=== PATIENT | female | born 1940 | race Caucasian/White ===

== ENCOUNTER 2024-09-07 12:12 | Observation (INO) | payer MEDICARE, OTHER ==
[~2024-09-07] VITALS: Ht 157.5 cm; Wt 56.9 kg
[2024-09-07] MEDS ORDERED: LISINOPRIL10 MG PO (12:24)
[2024-09-07] MEDS ORDERED: ondansetron HCL 4 MG/2 ML VIAL IV ONE (12:45)
[2024-09-07] MEDS ORDERED: SODIUM CHLORIDE 0.9% 1,000 ML IV ONE (12:45)
[2024-09-07 12:47] LABS: BASOPHILS 0.2 % (0-2); EOSINOPHILS 2.9 % (0-6); HEMATOCRIT 36.2 % (35.0-50.0); HEMOGLOBIN 12.2 g/dL (12.0-18.0); LYMPHOCYTES 14.3 % (24-44); MCH 29.2 (27-36); MCHC 33.7 g/dl (30-36); MCV 86.8 fl (81-99); NEUTROPHILS 72.6 % (39-80); PLATELET COUNT 218 K/uL (140-440); RBC 4.18 M/ul (4.3-5.7); RDW 13.9 (10.5-15.0)
[2024-09-07 13:03] LABS: ALBUMIN 3.4 g/dL (3.4-5.0); ALBUMIN/GLOBULIN RATIO 0.97 (1.1-2.4); ANION GAP 11.7 (7-21); BILIRUBIN, TOTAL 0.5 mg/dL (0.2-1.0); BUN/CREATININE RATIO 12.04 (6.0-28.6); CALCIUM 9.5 mg/dL (8.5-10.1); CREATININE, SERUM 1.66 mg/dL (0.55-1.02); POTASSIUM 3.7 mmol/L (3.5-5.1); PROTEIN, TOTAL 6.9 g/dL (6.4-8.2)
[2024-09-07 13:54] LABS: BILIRUBIN, URINE POSITIVE (negative); BLOOD/HGB, URINE NEGATIVE (Negative); KETONE, URINE TRACE (Negative); LEUK ESTERASE, URINE NEGATIVE (negative); NITRITE, URINE NEGATIVE (negative); PH, URINE 5.5 (5-7)
[2024-09-07 14:00] LABS: EPITHELIAL CELLS, URINE SQUAMOUS 4+ /lpf (0-1+); RED BLOOD CELLS, URINE 0-1 /hpf (0-5)
[2024-09-07 14:01] LABS: BACTERIA, URINE RARE /hpf (negative); CASTS, URINE NONE SEEN \\lpf; COLLECTION TYPE, URINE CLEAN CATCH; CRYSTALS, URINE NONE SEEN (0-1+); REFLEX CULTURE, URINE No (No)
[2024-09-07] MEDS ORDERED: LACTATED RINGER'S 1,000 ML IV SCH ×2 (16:30→18:00)
[2024-09-07] MEDS ORDERED: LATANOPROST2.5 ML OU (17:12)
[2024-09-07] MEDS ORDERED: NITROFURANTOIN100 M1 PO (17:12)
[2024-09-07] MEDS ORDERED: KETOROLAC TROMETHAMINE 15 MG/ML VIAL IV PRN (18:00)
[2024-09-07] MEDS ORDERED: MORPHINE SULFATE 10 MG/ML VIAL IV PRN (18:00)
[2024-09-07] MEDS ORDERED: ondansetron HCL 4 MG/2 ML VIAL IV PRN (18:00)
[2024-09-07 18:44] VITALS: BP 147/59
--- NOTE | 2024-09-07 18:47 | NUR ---
PATIENT ARRIVED TO MED/SURG AT 1840. PATIENT DENIES PAIN. LR@85 TO LEFT ARM. VITALS ARE STABLE, PATIENT IS 97% ON ROOM AIR. PATIENT IS A/O X4 CALL LIGHT IN HAND.
--- NOTE | 2024-09-07 19:02 | NUR ---
RECEIVED REPORT. PT UNDERGOING ADMISSION CHECKLIST WITH CLOTHES SEPARATOR. GIVEN LEMON MCGRATH SODA, CALL LIGHT IN REACH
--- NOTE | 2024-09-07 20:07 | NUR ---
RECEIVED REPORT. PT EATING DINNER IN CHAIR, BLOOD IS ADMINISTERING CURRENTLY. CALL LIGHT IN REACH
[2024-09-07 20:33] VITALS: BP 151/54
[2024-09-07] MEDS ORDERED: FAMOTIDINE 20 MG/ 2 ML VIAL IV SCH (21:00)
--- NOTE | 2024-09-07 21:00 | NUR ---
ASSESSMENT, EVENING MEDS. PT ALERT RESTING IN BED. NO NEEDS AT THIS TIME. CALL LIGHT IN REACH
[2024-09-07] MEDS ORDERED: CEFAZOLIN SODIUM 1 GM/10 ML SYR IV SCH (22:00)
--- NOTE | 2024-09-07 23:46 | NUR ---
PT RESTING IN BED, EASILY ROUSED WHEN ENTERED ROOM. NO NEEDS AT THIS TIME, CALL LIGHT IN REACH
[2024-09-08] VITALS (12 sets, daily range): BP systolic 151–170; BP diastolic 54–70
--- NOTE | 2024-09-08 02:06 | NUR ---
VITALS. ASSISTED SBA TO BATHROOM SURGERY CONSENT SIGNED. REINFORCED EDUCATION ON UPCOMING GALLBLADDER SURGERY, PT VERBALIZES UNDERSTANDING. CALL LIGHT IN REACH
--- NOTE | 2024-09-08 03:44 | NUR ---
PT RESTING WITH EYES CLOSED, RISE AND FALL OF CHEST. CALL LIGHT IN REACH
[2024-09-08 05:26] LABS: BASOPHILS 0.3 % (0-2); EOSINOPHILS 4.5 % (0-6); HEMATOCRIT 31.8 % (35.0-50.0); HEMOGLOBIN 10.9 g/dL (12.0-18.0); LYMPHOCYTES 17.9 % (24-44); MCH 29.4 (27-36); MCHC 34.2 g/dl (30-36); MCV 85.9 fl (81-99); NEUTROPHILS 68.3 % (39-80); PLATELET COUNT 185 K/uL (140-440); RDW 13.8 (10.5-15.0)
[2024-09-08 05:47] LABS: ALBUMIN 2.8 g/dL (3.4-5.0); ALBUMIN/GLOBULIN RATIO 0.88 (1.1-2.4); ANION GAP 11.9 (7-21); BILIRUBIN, TOTAL 0.5 mg/dL (0.2-1.0); BUN/CREATININE RATIO 13.33 (6.0-28.6); CALCIUM 9.3 mg/dL (8.5-10.1); CREATININE, SERUM 1.05 mg/dL (0.55-1.02); POTASSIUM 3.9 mmol/L (3.5-5.1)
--- NOTE | 2024-09-08 05:55 | NUR ---
PLACED CALL TO MD AND ASKED IF HE WOULD LIKE A PRE-OP EKG. RECEIVED VERBAL ORDER TO COMPLETE PRE-OP EKG. RT IN ROOM TO COMPLETE EKG.
--- NOTE | 2024-09-08 06:10 | NUR ---
MORNING ASSESSMENT, GIVEN IV ABX AND CHANGED LINENS. PT AWAITING GALLBLADDER SURGERY TODAY, REINFORCED PRE-OP EDUCATION. CALL LIGHT IN REACH
[2024-09-08] MEDS ORDERED: LISINOPRIL20 MG PO (07:57)
[2024-09-08] MEDS ORDERED: HALOBETASOL PRO15 G2 TOP (07:58)
[2024-09-08] MEDS ORDERED: PROBIOTIC1 EAC1 PO (07:58)
--- NOTE | 2024-09-08 07:58 | NUR ---
MED REC COMPLETE
--- NOTE | 2024-09-08 08:13 | NUR ---
Hourly rounding on patient. Patient assisted to the bathroom, and back to bed. call light has been placed within reach
--- NOTE | 2024-09-08 09:33 | NUR ---
ALERT AND ORIENTED IN BED. STATES SHE LIVES IN HOUSE WITH BOYFRIEND. STATES SHE HAS STAIRS BUT HAS NO ISSUES USING THEM. NO DME. PATIENT DRIVES AT BASELINE. SHE HAS NO FINANCIAL CONCERNS. PLAN TO DC TO HOME WHEN MEDICALLY CLEARED. NO CM NEEDS AT THIS TIME.
--- NOTE | 2024-09-08 10:12 | NUR ---
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 POSSIBLE DC FOLLOWING PROCEDURE 09/09/24
--- NOTE | 2024-09-08 10:56 | NUR ---
VISITED DURING SPIRITUAL CARE ROUNDS. PT IN OVERALL GOOD SPIRITS, NO IMMEDIATE NEEDS. TAKE OUT WAITER PROVIDED SUPPORTIVE PRESENCE, HOSPITALITY, PRAYER. PT EXPRESSED GRATITUDE, SATISFACTION WITH CARE.
[2024-09-08] MEDS ORDERED: SODIUM CHLORIDE 0.9% 60 ML IV ONE (12:10)
[2024-09-08] MEDS ORDERED: iopamidoL 30 ML VIAL ONE (12:10)
--- NOTE | 2024-09-08 12:55 | NUR ---
Hourly rounding. Patient is anxious and wants to know her surgery time. Nurse has been notifed. Call light has been placed within reach. No request from patient at this time
--- NOTE | 2024-09-08 13:46 | EKG ---
[facility] [address] [facility] [address] [facility] [place], [place] [address] Signed Normal sinus rhythm Normal ECG No previous ECGs available Confirmed by Jolene Wright DO ([id number]) on 09/08/2024 1:46:21 PM Electronically Signed By: JOLENE WRIGHT DO 09/08/24 1346 PATIENT NAME: JESSICA PALMER Electrocardiogram DATE OF : 40 PHYSICIAN: JOLENE WRIGHT DO REPORT #: [id number] REPORT IS CONFIDENTIAL AND NOT TO BE RELEASED WITHOUT AUTHORIZATION
--- NOTE | 2024-09-08 14:47 | NUR ---
HOURLY ROUNDING. PATIENT IS LAYING IN BED. NO REQUEST FROM PATIENT AT THIS TIME.
--- NOTE | 2024-09-08 14:50 | NUR ---
Patient left unit for surgery.
--- NOTE | 2024-09-08 15:47 | NUR ---
Patient in bed resting, eyes closed, respirations even and non labored. Patient has no notable distress. Personal supplies and call light within reach.
[2024-09-08] MEDS ORDERED: DEXAMETHASONE SOD PHOS 4 MG/ML VIAL ONE (16:27)
[2024-09-08] MEDS ORDERED: ACETAMINOPHEN 1,000 MG/100 ML VIAL ONE (16:27)
[2024-09-08] MEDS ORDERED: LIDOCAINE HCL 2% 20 MG/ML VIAL INJ ONE (16:27)
[2024-09-08] MEDS ORDERED: propofoL 200 MG/20 ML VIAL ONE (16:27)
[2024-09-08] MEDS ORDERED: SUCCINYLCHOLINE IN 0.9% NACL 200 MG/10 ML SYRINGE ONE (16:27)
[2024-09-08] MEDS ORDERED: ROCURONIUM BROMIDE 50 MG/5 ML SYR ONE (16:27)
[2024-09-08] MEDS ORDERED: fentaNYL citrate 100 MCG/2 ML VIAL ONE (16:27)
[2024-09-08] MEDS ORDERED: ondansetron HCL 4 MG/2 ML VIAL ONE (16:27)
[2024-09-08] MEDS ORDERED: SUGAMMADEX SODIUM 200 MG/2 ML ML ONE (16:27)
[2024-09-08] MEDS ORDERED: SEVOFLURANE 250 ML BTL INH ONE (16:42)
[2024-09-08] MEDS ORDERED: CEFAZOLIN SOD 1,000 MG/10 ML VIAL ONE (17:17)
[2024-09-08] MEDS ORDERED: ondansetron HCL 4 MG/2 ML VIAL IV PRN (17:45)
[2024-09-08] MEDS ORDERED: PROCHLORPERAZINE EDISYLATE 10 MG/2 ML VIAL IV PRN (17:45)
[2024-09-08] MEDS ORDERED: droPERidol 5 MG/2 ML VIAL IV PRN (17:45)
[2024-09-08] MEDS ORDERED: fentaNYL citrate 50 MCG/ML SDV IV PRN (17:45)
[2024-09-08] MEDS ORDERED: IBLOOD GLUCOSE TEST STRIP 1 EA TEST VI PRN (17:45)
[2024-09-08] MEDS ORDERED: NALOXONE HCL 0.4 MG SYR IV PRN (17:45)
[2024-09-08] MEDS ORDERED: HYDROmorphone HCL 1 MG/ML SYR IV PRN (17:45)
[2024-09-08] MEDS ORDERED: TYLENOL EXTRA500 MG PO (18:42)
[2024-09-08] MEDS ORDERED: HYDROCODON-ACE1 EA11 PO (18:43)
[2024-09-08] MEDS ORDERED: MOTRIN IB200 MG PO (18:43)
[2024-09-08] MEDS ORDERED: ONDANSETRON ODT8 MG PO (18:45)
[2024-09-08] MEDS ORDERED: ACETAMINOPHEN 500 MG TAB PO PRN (19:15)
[2024-09-08] MEDS ORDERED: HYDROCODONE/ACETA 5/325 TAB PO PRN (19:15)
[2024-09-08] MEDS ORDERED: IBUPROFEN 600 MG TAB PO PRN (19:15)
--- NOTE | 2024-09-08 19:18 | NUR ---
Patient back to the medical floor from surgery. Patient is awake, alert and oriented x3. Patient up to bedside commode to void, approx 200 ml clear yellow urine. Abdominal lap sites x4 noted, steri strips intact, scant serosang drainage noted. Patient oriented to room and call light. Bed alarm intact.
--- NOTE | 2024-09-08 19:30 | NUR ---
Admin morphine 4mg iv at this time for reports of 8/10 abdominal pain.
--- NOTE | 2024-09-08 19:32 | NUR ---
DR MARY AT RN STATION AND UPDATED THAT pt HAS VOIDED X1 AND BEEN GIVEN PRN PAIN MEDICATION X1 SINCE RETURNING FROM PACU PER CHARGE REPORT. PER [facility], pt VERBALIZES WISHES TO STAY THE NIGHT FOR PAIN CONTROL. MADE AWARE, NO NEW ORDERS RECEIVED AT THIS TIME.
--- NOTE | 2024-09-08 19:36 | NUR ---
09/08/241935 VINI REID 182 PT ARRIVED TO PACU VIA STREACHER FROM OR. REPROT TAKEN FROM NAWAF OWEN. PT ON 6L OF OXYGEN VIA FACE MASK, PT O2 SAT ABOVE 90%. PT ROLLING AROUND IN BED SAYING 'IT HURTS SO BAD' WHILE CLUTCHING HER STOMACH/SURGICAL AREA. PT RATES PAIN 10/10. ALL MONITORS ATTACHED, VITALS TAKEN, IV ASSESSED. 182 PT SAYS HER PAIN IS 9/10 NOT TOLERABLE. PT REMOVED FROM OXYGEN AT THIS TIME, O2 SAT ABOVE 90% ON RA. 182 PAIN MEDICATION GIVEN, SEE EMAR. 183 PT STILL REPORTS PAIN 9/10. PAIN MEDICATION GIVEN, SEE EMAR. 1840 PT BECOMES NAUSOUS AND SPITS INTO AN EMESIS BAG WHILE COUGHING. PT REPORTS 8/10 PAIN. PAIN MEDICATION AND NAUSEA MEDICATION GIVEN, SEE EMAR. COLD WASH CLOTH APPLIED TO PT FOREHEAD. 184 PT NAUSEA IS BETTER, BUT STILL PRESENT. PAIN IS 7/10 AND NOT TOLERABLE. WHEN ASKED ABOUT A TOLERABLE LEVEL OF PAIN, PT SAYS THEY WANT A 1/10. EDUCATED PT ABOUT PAIN AFTER SURGERY, PT VERBALIZES UNDERSTANDING. 185 PT REPORTS 6/10 PAIN AND STILL NOT TOLERABLE. PAIN MEDICATION GIVEN PER EMAR. 1900 PT HAS FALLEN ASLEEP IN BED, PT WAKES TO VERBAL STIMULI. PT REPORTS NO NAUSEA AT THIS TIME. PT REPORTS 3/10 PAIN AND FALLS BACK TO SLEEP QUICKLY. 1909 IV ASSESSED. PT DROWSEY BUT RESPONSIVE TO VERBAL STIMULI. PT STATES SHE IS MUCH MORE COMFORTABLE. PT HAS WARM BLANKETS. PT TRANSFERRED TO [facility] FLOOR ROOM 111, REPORT GIVEN TO DEE VACA RN, CARE TRANSFERRED AT THIS TIME. PT IS UP TO [facility] WITH [facility] RN URIANT[facility]. BED IS LOW AND LOCKED, CALL LIGHT WITHIN REACH, BED PLUGGED IN. PT BACK IN BED AFTER USING COMODE. PT HAS NO QUESTIONS AT THIS TIME. PT BREATHING EQUAL AND UNLABORED, ALL MONITORS ATTACHED.
--- NOTE | 2024-09-08 19:37 | NUR ---
PT RECEIVED FROM PACU BY SAAD AKHTAR. RECEIVED UPDATED REPORT FROM GIOVANA. PT RESTING ON RIGHT SIDE. IVF INFUSING. CPOX IN PLACE.
--- NOTE | 2024-09-08 20:15 | NUR ---
PT RESTING QUIETLY. AWAKENS EASILY. REPORTS MINIMAL PAIN TO ABD, 07/03. PT ACCEPTED OFFER OF PRN TORADOL. POST-OP VSS. LSC, 2L O2 N/C. CPOX IN PLACE. HRR. BT HYPO. ABD SOFT, MILDLY TENDER. DENIES NAUSEA. 4 PUNCTURE SITES TO ABD W/ STERI STRIPS-SOME BLEEDING NOTED. LFA IV INFUSING LR. PT AMBULATED TO BR W/ SBA, GAIT SLIGHTLY UNSTEADY. VOIDS WNL. STARTED RA TRIAL, O2 SATS 95% WITHOUT O2 AFTER GOING INTO BR. CALL LIGHT WITHIN REACH.
--- NOTE | 2024-09-08 21:20 | NUR ---
PT RESTING, AWAKENS EASILY. DENIES PAIN. TOLERATING ROOM AIR TRIAL. POST-OP VS OBTAINED. JELLO PROVIDED PER REQUEST.
--- NOTE | 2024-09-08 22:30 | NUR ---
POST-OP VS COMPLETED. AMBULATED TO BR W/ SBA. VOIDS WNL. REPORTS MILD NAUSEA AFTER AMBULATION. ASSISTED BACK TO BED. CALL LIGHT WITHIN REACH.
--- NOTE | 2024-09-09 00:40 | NUR ---
PT SLEEPING SOUNDLY. APPEARS COMFORTABLE. CPOX IN PLACE-O2 SATS 94%.
[2024-09-09 01:32] VITALS: BP 169/64
--- NOTE | 2024-09-09 01:42 | NUR ---
PT AWAKE, SLEEPING BETWEEN CARE. BRIEF EPISODE OF NAUSEA WHEN UP TO BR BUT SELF RESOLVED. DENIES PAIN. REPORTS SLEEPING WELL.
[2024-09-09 01:43] VITALS: BP 169/64
--- NOTE | 2024-09-09 04:24 | NUR ---
NEW BAG IVF STARTED. PT SLEEPING.
[2024-09-09 06:02] VITALS: BP 161/56
--- NOTE | 2024-09-09 07:21 | NUR ---
MORNING REPORT RECIEVED FROM SAAD TURNER. PT LAYING IN BED WITH EYES CLOSED CHEST RISE EQUAL BILAT. PT PAIN WAS CONTROLLED WELL DURING THE NIGHT AND IS EXPECTED TO BE DC HOME TODAY. PT HAS CALL LIGHT IN REACH.
--- NOTE | 2024-09-09 08:41 | NUR ---
Hourly rounding. Board has been updated. Patient reported feeling cold but lizette. I checked patient temp, it was 98.0 Oral temp. Patient reports this isn't a new thing for her. Charge nurse has been alerted. No request frompatient at this time
[2024-09-09] MEDS ORDERED: FAMOTIDINE 20 MG TAB PO SCH (09:00)
--- NOTE | 2024-09-09 09:04 | NUR ---
PT LAYING IN BED, PT REFUSED TO MOVE TO CHAIR FOR BREAKFAST BUT AGREED TO SIT UP LATER. PT HAS NO CURRENT PAIN AT THIS TIME ABD SOFT, NON DISTENDED/TENDER. PT HAS NO CONCERNS AT THIS TIME CALL LIGHT IN REACH.
--- NOTE | 2024-09-09 09:16 | NUR ---
ALERT AND ORIENTED IN BED. STATES SHE HAS NO CM NEEDS. HER FIANCE IS GOING TO BE IN TODAY AND HE WILL TRANSPORT HER HOME WHEN SHE IS READY TO DC.
[2024-09-09 10:07] VITALS: BP 167/59
--- NOTE | 2024-09-09 10:11 | NUR ---
PT DC INSTRUCTIONS GIVEN AND PAPER WORK. PT HAS NO CONCERNS OR FURTHER QUESTIONS. PT WAITING FOR [facility] WHO WILL BE HER FORM OF TRANSPORT. PT CURRENTLY WAITING FOR PHARMACY. PT CALL LIGHT IN REACH.
--- NOTE | 2024-09-09 10:18 | NUR ---
PT NOT AVAILABLE FOR VISIT. PROVIDED PRAYER.
--- NOTE | 2024-09-10 08:02 | OR ---
[facility] [address] [place], [place] [address] Signed DATE OF OPERATION: 09/08/2024 SURGEON: Darion Mary MD PREOPERATIVE DIAGNOSIS: Acute calculous cholecystitis. POSTOPERATIVE DIAGNOSIS: Acute calculous cholecystitis. PROCEDURES: 1. Laparoscopic cholecystectomy with intraoperative cholangiogram. 2. Surgeon-directed fluoroscopy. ANESTHESIA: General endotracheal, Pedrito Valiente, FIVE ROLL REFINER BATCH MIXER and local 10 mL of 0.25% Marcaine with epinephrine. INDICATIONS: This is an 84-year-old white woman presented to the emergency room yesterday and was evaluated by Dr. Reyes Lawson. She had complaints of abdominal pain and vomiting. She is longstanding known that she has had gallstones based on ultrasound in the distant past. She had been seen and treated a few days previously at the Urgent Care for urinary tract infection including antibiotics. The patient had a rectal prolapse operation a year ago and a hysterectomy in the distant past. An ultrasound performed in the emergency room confirmed a distended gallbladder with gallstones and a lobulated isoechoic lesion in the posterior gallbladder wall measuring 1.6 cm, either tumefactive sludge or a possible polyp. She has been fluid resuscitated given intravenous antibiotics and so forth and now to undergo cholecystectomy preferred by a laparoscopic approach. The risks of bleeding, infection, bile duct injury, need for open procedure and need for other indicated procedures was reviewed in detail. She understands and wished to proceed. FINDINGS: The gallbladder was floppy and chronically inflamed. It was not tense and distended. Liver was senescent, but normal otherwise. Cholangiogram showed a slightly dilated common bile duct with free flow of contrast in the biliary tree and a pancreatogram was also noted. Contrast did flow into the duodenum. The gallbladder once examined showed a mucosal lesion, which was rather subtle actually, but definitely present as well as a single small dark multifaceted gallstone. There is no evidence of penetration through Electronically Signed By: DARION MARY MD 09/10/24 0802 PATIENT NAME: JESSICA PALMER OPERATIVE REPORT DATE OF : 40 REPORT #: [id number] PHYSICIAN: DARION MARY MD PCP: DARION DUMONT REPORT IS CONFIDENTIAL AND NOT TO BE RELEASED WITHOUT AUTHORIZATION [facility] [address] [place], [place] [address] Signed the serosal surface of the gallbladder in any case. DESCRIPTION OF PROCEDURE: The patient was brought to the operating room, given a general endotracheal anesthetic. Preoperative antibiotic Ancef was given. She was given a dose of Ancef in the operating room. The abdomen was prepared with a chlorhexidine solution and draped sterilely. An infraumbilical incision was made and using an open Delvis cannula technique pneumoperitoneum was achieved to a level of 14 mmHg of carbon dioxide gas. Intra-abdominal inspection showed no sign of ascites or carcinomatosis. Gallbladder appeared floppy and adherent to surrounding soft tissue including omentum. The liver was senescent, but without sign of lesions otherwise. Three additional trocars were placed in usual configuration in the subxiphoid, right midclavicular, and right anterior axillary line. Gallbladder was elevated cephalad and omental adhesions, which were adherent to the undersurface of the gallbladder were taken down with blunt electrocautery dissection. This allowed for elevation of the gallbladder more fully. Using blunt electrocautery dissection, the triangle of Calot was dissected free ultimately identifying the dominant cystic artery and of course the cystic duct. Cystic artery was doubly clipped and divided and the clip was applied across gallbladder cystic duct junction and a choledochotomy made in the cystic duct. Egress of some bile was noted. Using the FreeWheel type cholangiocatheter system, intraoperative cholangiography was undertaken showing free flow of contrast in the biliary tree. The common bile duct appeared somewhat dilated and although, there was prompt passage of contrast into the duodenum, it was with slight hesitation and some retrograde filling of the pancreatic duct itself. Retrograde filling to the proximal biliary tree was somewhat delayed, but ultimately the dominant common hepatic duct was shown. The catheter was removed and the cystic duct was triply clipped and divided and the gallbladder was dissected free in a retrograde fashion using electrocautery. The gallbladder was not entered during the course of dissection. The liver bed had appeared normal post resection of the gallbladder. The gallbladder was extracted through the infraumbilical port site opened on the back table and found to have a single small black multifaceted gallstone and a mucosal abnormality consistent with a polyp like lesion not strictly malignant in its appearance. Irrigation was undertaken in subhepatic space. There was no sign of bile leak bleeding or other problems. Excess irrigation fluid was suctioned free. The trocars were removed under direct visualization showing no sign of bleeding. The infraumbilical fascial incision was then reapproximated with interrupted 0 Vicryl suture. A 10 mL of 0.25% Marcaine with epinephrine was injected locally. The skin was closed with interrupted 3-0 Vicryl. Steri-Strips were applied. The patient was ultimately extubated and transferred to the recovery room in good condition and suffered Electronically Signed By: DARION MARY MD 09/10/24 0802 PATIENT NAME: JESSICA PALMER OPERATIVE REPORT DATE OF : 40 REPORT #: [id number] PHYSICIAN: DARION MARY MD PCP: DARION DUMONT REPORT IS CONFIDENTIAL AND NOT TO BE RELEASED WITHOUT AUTHORIZATION [facility] [address] [place] [address] Signed no complication. Sponge, needle, and instrument counts were as correct x3. MD ANEESH Clemente/ROMELIA /[id number] cc: MD Darion Hatch PA Copies: REYES LAWSON MD, JOHN PA ~ Electronically Signed By: DARION MARY MD 09/10/24 08 PATIENT NAME: JESSICA PALMER OPERATIVE REPORT DATE OF : 40 REPORT #: [id number] PHYSICIAN: DARION MARY MD PCP: DARION DUMONT REPORT IS CONFIDENTIAL AND NOT TO BE RELEASED WITHOUT AUTHORIZATION
--- NOTE | 2024-09-10 08:02 | HP ---
[facility] [address] [place], [place] [address] Signed ADMISSION DATE: 09/07/2024 REASON FOR ADMISSION: Acute calculous cholecystitis. HISTORY OF PRESENT ILLNESS: This 84-year-old white woman who is accompanied by her boyfriend who is far parag to her with complaints of abdominal pain and vomiting. The patient has had longstanding episodic right upper abdominal pain, nausea and vomiting, but things worsened only recently. She was treated several days ago at the Urgent Care for urinary tract infection; this included antibiotics. The patient had rectal prolapse surgery a year ago and hysterectomy in the distant past. She has only underlying hypertension as a problem. She has long known to have gallstones diagnosed in the distant past. She had been recommended for a cholecystectomy, but declined as she did not want to have surgery. Evaluation in the emergency room by Dr. Davis included a clinical exam and lab studies and an abdominal ultrasound, which showed a distended gallbladder with gallstones and a lobulated isoechoic lesion along the posterior gallbladder wall measuring 1.6 cm, possibly tumefactive sludge or possible polyp. She had no biliary dilatation and no intraparenchymal abnormalities of the liver itself. She is admitted for further evaluation and care. CURRENT MEDICATIONS: Include: 1. Latanoprost eyedrops one drop in each eye daily. 2. Lisinopril 10 mg daily. 3. Nitrofurantoin 100 mg p.o. b.i.d. ALLERGIES: She has no known drug allergies. SOCIAL HISTORY: She is accompanied by her boyfriend. She lives in the [facility]. REVIEW OF SYSTEMS: She denies any shortness of breath or chest pain. She has no dyspnea or other similar problem. Her main pain is in the right upper quadrant of the abdomen. PHYSICAL EXAMINATION: GENERAL: A relatively thin white woman who looks to be in no acute distress at the Electronically Signed By: DARION MARY MD 09/10/24 0802 PATIENT NAME: JESSICA PALMER HISTORY AND PHYSICAL DATE OF : 40 REPORT #: [id number] PHYSICIAN: DARION MARY MD PCP: DARION DUMONT REPORT IS CONFIDENTIAL AND NOT TO BE RELEASED WITHOUT AUTHORIZATION [facility] [address] [place], [place] [address] Signed moment. She has no evidence of stem systemic toxicity. VITAL SIGNS: A temperature of 98, blood pressure 115/57, pulse 72, O2 saturation 99%. HEENT: Trachea is midline. CHEST: Shows normal respiratory excursion. HEART: Regular. ABDOMEN: Nondistended. There is tenderness in right upper quadrant. There is no mass. I detect no ascites. EXTREMITIES: Show no clubbing, cyanosis, or edema. LABORATORY STUDIES: Show white count of 12.4, hematocrit 36.2, platelets 218,000. Chem profile notable for a creatinine 1.66, glucose 139. Liver enzymes are essentially normal. Lipase slightly elevated at 85 (normal to 77). ASSESSMENT AND PLAN: The patient has acute calculous cholecystitis. There may or may not be a polypoid lesion of the gallbladder wall. She has longstanding gallstones and has been noted and recommended to have cholecystectomy in the past. Her symptoms have been progressive and now accelerating and now have culminated and what appears to be acute calculous cholecystitis. I discussed the pathophysiology of the problem with the patient and her boyfriend and have recommended cholecystectomy. A laparoscopic approach would be preferred, although an open procedure may be necessary. The risk of bleeding, infection, bile duct injury, need for other indicated procedures and of course, a possibility of malignancy within the gallbladder itself also discussed and understood. Understanding this, they wished to proceed. MD ANEESH Clemente/PARDEEPL /[id number] cc: Reyes Davis MD Electronically Signed By: DARION MARY MD 09/10/24 0802 PATIENT NAME: JESSICA PALMER HISTORY AND PHYSICAL DATE OF : 40 REPORT #: [id number] PHYSICIAN: DARION MARY MD PCP: DARION DUMONT REPORT IS CONFIDENTIAL AND NOT TO BE RELEASED WITHOUT AUTHORIZATION [address] [address] Signed Copies: REYES DAVIS MD ~ Electronically Signed By: DARION MARY MD 09/10/24 0802 PATIENT NAME: JESSICA PALMER HISTORY AND PHYSICAL DATE OF : 40 REPORT #: [id number] PHYSICIAN: DARION MARY MD PCP: DARION DUMONT REPORT IS CONFIDENTIAL AND NOT TO BE RELEASED WITHOUT AUTHORIZATION
--- NOTE | 2024-09-11 10:19 | PATH ---
[facility] [address] [place], [place] [address] Signed SPECIMEN(S): A GALLBLADDER AND STONE SPECIMEN SOURCE: A. GALLBLADDER AND STONE CLINICAL HISTORY: Acute cholecystitis with cholelithiasis FINAL PATHOLOGIC DIAGNOSIS: Gallbladder, cholecystectomy: - Chronic cholecystitis with papillary hyperplasia BRP MICROSCOPIC EXAMINATION: Histologic sections of all submitted blocks are examined by light microscopy. These findings, together with the gross examination, support the pathologic diagnosis. GROSS DESCRIPTION: The specimen, labeled and designated "Laurence, gallbladder and stone," is received in formalin and consists of Specimen: Previously opened gallbladder. Dimensions: 7.3 x 3.0 x 1.5 cm. Serosa: Green-mendez and smooth. Cystic Duct: Unobstructed, margin inked black and shaved. Calculi: Not grossly identified. Mucosa: Green and velvety with yellow flecking. Wall thickness: 0.2-0.5 cm. Lymph node: No pericystic lymph nodes are grossly identified. Additional: None. Human Resource Management Instructor sections are submitted in (A1). VB (under the direct supervision of a pathologist) The Gross Description was prepared using a voice recognition system. The report was reviewed for accuracy; however, sound-alike word errors, addition and/or deletions may occur. If there is any question about this report, please contact Client Services. ADDITIONAL NOTES: Immunohistochemical and/or in situ hybridization studies if performed in this case included appropriate positive controls that reacted as expected. This test was developed and its performance PATIENT NAME: JESSICA PALMER PATHOLOGY DATE OF : 40 REPORT #: [id number] PHYSICIAN: TREVON BARRETO PCP: DARION DUMONT REPORT IS CONFIDENTIAL AND NOT TO BE RELEASED WITHOUT AUTHORIZATION [facility] [address] [place], [place] [address] Signed characteristics determined by [facility]. It has not been cleared or approved by the U.S. Food and Drug Administration. The FDA has determined that such clearance or approval is not necessary. This test is used for clinical purposes. It should not be regarded as investigational or for research. [facility] is certified under the Clinical Laboratory Improvement Amendments of 1988 (CLIA) as qualified to perform high complexity clinical laboratory testing. PERFORMING LABORATORY: Technical component was performed by [facility], [address] [place] [id number] (CLIA# [id number]). Professional interpretation was performed by [facility], [address] [address] (CLIA# [id number]). Diagnostician: Turner Maier MD Pathologist Electronically Signed 09/11/2024 Copies: ~ PATIENT NAME: JESSICA PALMER PATHOLOGY DATE OF : 40 REPORT #: [id number] PHYSICIAN: TREVON PATHOLOGY PCP: DARION DUMONT REPORT IS CONFIDENTIAL AND NOT TO BE RELEASED WITHOUT AUTHORIZATION
--- NOTE | 2024-09-11 12:48 | DS ---
[facility] [address], [place] [address] Signed ADMISSION DATE: 09/07/2024 DISCHARGE DATE: 09/09/2024 REASON FOR ADMISSION: Acute calculous cholecystitis. HISTORY OF PRESENT ILLNESS: This 84-year-old white woman presented to the emergency room with complaints of abdominal pain and vomiting. She has had long-standing episodic right upper abdominal pain. Things worsened most recently. She was treated several days ago at the Urgent Care for urinary tract infection including prescription of antibiotics. She is long known to have gallstones as diagnosed in the distant past. She had been recommended for cholecystectomy, declined because she didn't want an operation. A gallbladder ultrasound was performed under the direction of Dr. Lawson, which showed a distended gallbladder with gallstones and a lobulated isoechoic lesion along the posterior gallbladder wall measuring 1.6 cm, possibly tumefactive sponge or possible polyp. She is admitted for further evaluation and care. PERTINENT PHYSICAL EXAMINATION: HEENT: Showed no evidence of some systemic toxicity. Temperature is 98, blood pressure 115/57, pulse 72, O2 saturation 99%. NECK: Trachea is midline. CHEST: Clear. HEART: Regular without murmur. ABDOMEN: Nondistended. There is tenderness in right upper quadrant. There is no mass. She has no ascites. LABORATORY DATA: White count was 12.4, hematocrit 36.2, and platelets 218,000 Chem profile notable for a creatinine of 1.66. Liver enzymes are essentially normal. Lipase slightly elevated at 85. HOSPITAL COURSE: She was admitted, given fluid resuscitation, IV antibiotic Ancef and followup lab showed her white count to be improved to 7.1, hematocrit 31.8 and platelets 185,000. Chem profile was notable for normal liver enzymes and improvement of her clinical situation. On September 09, 2023, she underwent laparoscopic cholecystectomy with intraoperative cholangiogram. She was found to have a distended but floppy gallbladder with chronic inflammation. Once excised, the gallbladder was noted to have a single small dark Electronically Signed By: DARION MARY MD 09/11/24 1248 PATIENT NAME: JESSICA PALMER DISCHARGE SUMMARY DATE OF : 40 REPORT #: [id number] PHYSICIAN: DARION MARY MD PCP: DARION DUMONT REPORT IS CONFIDENTIAL AND NOT TO BE RELEASED WITHOUT AUTHORIZATION [facility] [address] [place] [id number] Signed gallstone, but a mucosal lesion that was somewhat flat, but polypoid in appearance. There was no perforation of the gallbladder during the course of dissection and wide resection was undertaken including the part of the gallbladder near the liver bed. Her postoperative course was unremarkable. The following day, she felt ready for discharge, was tolerating a regular diet. DISCHARGE MEDICATIONS: Will include: 1. Tylenol 500 mg two tablets p.o. q.6 hours as needed for pain, #60. 2. Ibuprofen 600 mg p.o. q.6 hours as needed for pain, #30. 3. Rena Lara 7.5/325 one p.o. q.6 hours as needed for severe pain, #6, refill zero. 4. Zofran 8 mg oral dissolving tablet one p.r.n. q.6 hours as needed for nausea and vomiting, #10. She will resume her usual medications, which include nitrofurantoin 100 mg p.o. b.i.d. 5. Latanoprost eyedrops one drop each eye daily for glaucoma. 6. Lisinopril 20 mg p.o. daily. 7. Halobetasol cream as needed for eczema. 8. Lactobacillus probiotic capsule one p.o. daily. DISCHARGE DIAGNOSES: 1. Acute calculous cholecystitis and mucosal defect, pathology pending. 2. Status post laparoscopic cholecystectomy with intraoperative cholangiogram. 3. Glaucoma. 4. Recent urinary tract infection (now treated). MD ANEESH Clemente/PARDEEPL /[id number] cc: DAYAN Wolf Electronically Signed By: DARION MARY MD 09/11/24 1248 PATIENT NAME: JESSICA PALMER DISCHARGE SUMMARY DATE OF : 40 REPORT #: [id number] PHYSICIAN: DARION MARY MD PCP: DARION DUMONT REPORT IS CONFIDENTIAL AND NOT TO BE RELEASED WITHOUT AUTHORIZATION [facility] [address] [place] [address] Felipe Roldan [place] [address] Signed Copies: ~ Electronically Signed By: DARION MARY MD 09/11/24 1248 PATIENT NAME: JESSICA PALMER DISCHARGE SUMMARY DATE OF : 40 REPORT #: [id number] PHYSICIAN: DARION MARY MD PCP: DARION DUMONT REPORT IS CONFIDENTIAL AND NOT TO BE RELEASED WITHOUT AUTHORIZATION
== END 2024-09-09 10:54 | disposition home or self-care (01) ==
LOC: ED 12:12 → MS 12:14
PROVIDERS: Emergency Medicine; ADMIT Surgery; ATTEND Surgery
PROC: BF13YZZ Fluoroscopy of Gallbladder and Bile Ducts using Other Contrast (ICD-10-PCS; 2024-09-08)
PROC: 0FT44ZZ Resection of Gallbladder, Percutaneous Endoscopic Approach (ICD-10-PCS; principal; 2024-09-08 14:45)
DX: K80.12 Calculus of gallbladder with acute and chronic cholecystitis without obstruction (principal); K82.8 Other specified diseases of gallbladder; I10 Essential (primary) hypertension; H40.9 Unspecified glaucoma; N39.0 Urinary tract infection, site not specified; Z79.899 Other long term (current) drug therapy; Z90.710 Acquired absence of both cervix and uterus
CPT/HCPCS: 00790; 36415; 74300; 76705; 80053; 81001; 83690; 85025; 88304; 93005; 93010; 94762; 96361; 96374; 96375; 96376; 99285-25; A9270; G0378; J0131; J0330; J0690; J1100; J1171; J1885; J2270; J2405; J2704; J3010; J3490; J7030; J7121; Q9967

== ENCOUNTER 2024-09-14 11:50 | Emergency (ER) | payer MEDICARE, OTHER ==
[~2024-09-14] VITALS: Ht 157.5 cm; Wt 60.0 kg
[~2024-09-14 11:50] MED LIST: HALOBETASOL PRO15 G2 TOP; HYDROCODON-ACE1 EA11 PO; LATANOPROST2.5 ML OU; LISINOPRIL10 MG PO; LISINOPRIL20 MG PO; MOTRIN IB200 MG PO; NITROFURANTOIN100 M1 PO; ONDANSETRON ODT8 MG PO; PROBIOTIC1 EAC1 PO; TYLENOL EXTRA500 MG PO
--- OUTSIDE RECORDS SUMMARY | 2024-09-14 11:57 | XMS ---
PreManage Notification: JESSICA PALMER Security [employer] Events No recent Security Events currently on file CRITERIA MET - [facility] - 2 Visits in 30 Days CARE PROVIDERS Nash Boothe PA-C Physician Labeling Associate Current PHONE: Unknown Elena has no Care Guidelines for this patient. Kamala VISIT COUNT (12 MO.) 2 [facility] TOTAL 2 NOTE: Visits indicate total known visits. ED/UCC VISIT TRACKING (12 MO.) 09/14/2024 11:51 [facility] TYPE: Emergency COMPLAINT: - WEAKNESS 09/07/2024 12:13 [facility] TYPE: Emergency COMPLAINT: - ABDOMINAL PAIN INPATIENT VISIT TRACKING (12 MO.) 09/07/2024 12:14 [facility] [place] TYPE: Observation COMPLAINT: - ACUTE CALC CHOLECYSTITIS DIAGNOSES: - Acquired absence of both cervix and uterus - Calculus of gallbladder with acute and chronic cholecystitis without obstruction - Calculus of gallbladder with acute cholecystitis without obstruction - Essential (primary) hypertension - Other intermediate manager (current) drug therapy - Unspecified glaucoma - Urinary tract infection, site not specified [email or web address]
[2024-09-14] MEDS ORDERED: ondansetron HCL 4 MG/2 ML VIAL IV ONE (12:30)
[2024-09-14] MEDS ORDERED: SODIUM CHLORIDE 0.9% 500 ML IV ONE (12:30)
[2024-09-14 13:07] LABS: BASOPHILS 0.4 % (0-2); EOSINOPHILS 0.9 % (0-6); HEMATOCRIT 36.6 % (35.0-50.0); HEMOGLOBIN 12.6 g/dL (12.0-18.0); LYMPHOCYTES 21.9 % (24-44); MCH 29.5 (27-36); MCHC 34.4 g/dl (30-36); MCV 85.8 fl (81-99); MONOCYTES 7.9 % (0-12); NEUTROPHILS 68.9 % (39-80); PLATELET COUNT 328 K/uL (140-440); RBC 4.27 M/ul (4.3-5.7); RDW 13.7 (10.5-15.0)
[2024-09-14 13:35] LABS: ALBUMIN 3.2 g/dL (3.4-5.0); ALBUMIN/GLOBULIN RATIO 0.86 (1.1-2.4); ANION GAP 15.7 (7-21); BILIRUBIN, TOTAL 0.5 mg/dL (0.2-1.0); BUN/CREATININE RATIO 12.28 (6.0-28.6); CALCIUM 9.9 mg/dL (8.5-10.1); CREATININE, SERUM 1.14 mg/dL (0.55-1.02); MAGNESIUM 2.1 mg/dL (1.8-2.4); POTASSIUM 3.7 mmol/L (3.5-5.1); PROTEIN, TOTAL 6.9 g/dL (6.4-8.2)
[2024-09-14] MEDS ORDERED: PROMETHAZINE HCL 25 MG TAB PO ONE (15:15)
[2024-09-14 16:53] LABS: BILIRUBIN, URINE NEGATIVE (negative); BLOOD/HGB, URINE NEGATIVE (Negative); KETONE, URINE SMALL (Negative); LEUK ESTERASE, URINE NEGATIVE (negative); NITRITE, URINE NEGATIVE (negative)
[2024-09-14] MEDS ORDERED: PROMETHAZINE HC25 M1 PO (17:09)
[2024-09-14 17:45] VITALS: BP 155/63
== END 2024-09-14 17:45 | disposition home or self-care (01) ==
LOC: ED 11:50
PROVIDERS: Emergency Medicine
DX: R11.2 Nausea with vomiting, unspecified (principal); I10 Essential (primary) hypertension
CPT/HCPCS: 36415; 74177; 80053; 81003; 83735; 85025; 99284-25; J2405; J7040